=== PATIENT | female | born 1985 | race Caucasian/White ===

== ENCOUNTER 2019-05-14 05:37 | Day surgery (SDC) | payer OTHER ==
[2019-05-13 11:22] VITALS: BMI 29.4
--- NOTE | 2019-05-14 10:21 | HP ---
History & Physical Update - Physical Physical: No Change - Assessment Assessment: No Change - Plan Plan: No Change (H&P reviwed , no changes , for hysteroscopy, resection of submucos myoma)
[2019-05-14] MEDS ORDERED: MIDAZOLAM HCL 2 MG/2 ML SINGLE DOSE VIAL ONE ×2 (12:12→12:40)
[2019-05-14] MEDS ORDERED: PROPOFOL 20 ML ONE ×2 (12:41)
[2019-05-14] MEDS ORDERED: ONDANSETRON 4 MG/2 ML VIAL IVPUSH PRN ×2 (13:18→13:29)
[2019-05-14] MEDS ORDERED: PROMETHAZINE HCL 25 MG/1 ML VIAL IVPB PRN (13:18)
[2019-05-14] MEDS ORDERED: oxyCODONE HCL 5 MG TABLET PO PRN ×2 (13:18→13:29)
--- NOTE | 2019-05-14 13:22 | OP ---
Operative Note - Note: Operative Date: 05/14/19 Pre-Operative Diagnosis: EM polyp, submucos myoma Operation: hysteroscopy, EM polypectomy, D&C Findings: large EM polyp Surgeon: Fred Park Anesthesiologist/COMMERCIAL REAL ESTATE MANAGER: Sean Funes Specimens Removed: EMC, EM polyp Estimated Blood Loss (mls): 25 Blood Volume Replaced (mls): 0 Operative Report Dictated: Yes
[2019-05-14] MEDS ORDERED: IBUPROFEN 800 MG/8 ML IJ IVPB PRN (13:29)
[2019-05-14] MEDS ORDERED: IBUPROFEN 600 MG TABLET (FP) PO PRN (13:29)
[2019-05-14] MEDS ORDERED: ELECTROLYTE-148 SOLN 1,000 ML IV SCH (13:30)
[2019-05-14 15:22] VITALS: PULSE 65; TEMP 98
[2019-05-14 17:29] VITALS: BP 102/55
--- NOTE | 2019-05-14 21:44 | OP ---
DATE OF OPERATION: 05/14/2019 PREOPERATIVE DIAGNOSIS: Endometrial polyp, rule out submucous myoma. POSTOPERATIVE DIAGNOSIS: Endometrial polyps, rule out submucous myoma. PROCEDURE: Hysteroscopy, resection of endometrial polyp, and dilation and curettage. SURGEON: Fred Vanessa MD ANESTHESIA: General. ANESTHESIOLOGIST: Sean Funes MD ESTIMATED BLOOD LOSS: 25 mL. OPERATION: Patient was taken to operating room under adequate general anesthesia in dorsal lithotomy position. Examination under anesthesia revealed external genitalia to be normal, vagina was normal, cervix was clean, no lesion. Uterus was prominent. Adnexa, no masses were palpable. Then, with a weighted speculum in the vagina, anterior lip of the cervix was grasped with a single-tooth tenaculum. Cervix was slight dilated and uterine cavity was sounded to 9 cm. Then Symphion hysteroscope was introduced. Visualization of endocervical canal appeared to be normal. Endometrium was prominent and there was a large endometrial polyp in the mid body of the uterus. Both cornual regions were identified. There was a fundal indentation, possible intramural submucous myoma. No other abnormality was noted. Then, with the Symphion resectoscope, the endometrial polyp was removed entirely, but the submucous myoma, because of being deep-seated in the wall of the uterus, was not attempted to resect. Hysteroscope was withdrawn and then endometrial curetting was done. Patient tolerated procedure well, left the OR in good condition. FRED VANESSA M.D. [id number]
--- NOTE | 2019-05-15 15:03 | PATH ---
Surgical Pathology Report Patient Name: KIMBERLY MOHAMUD [facility]. Rec. #: [id number] /Age/Gender: 1985 (Age: 33) / F Account: [id number] Location: [facility] SURGICAL Taken: 05/14/2019 Received: 05/14/2019 Reported: 05/15/2019 Physicians: Fred Park M.D. Specimen(s) Received ENDOMETRIAL CURETTINGS AND ENDOMETRIAL POLYP Clinical History Endometrial polyp, pelvic pain Final Diagnosis ENDOMETRIAL POLYP AND ENDOMETRIAL CURETTINGS, POLYPECTOMY, DILATION AND CURETTAGE: FRAGMENTS OF ENDOMETRIAL POLYP AND SECRETORY ENDOMETRIUM. Electronically Signed Anne-Marie Zeng M.D. Gross Description Received in formalin labeled "endometrial polyp and curettings," is a 3.7 x 2.5 x 0.3 cm aggregate of cuevas-pink soft tissue fragments. The formalin is filtered and the specimen is entirely submitted in 2 cassettes. /05/14/2019 saudi/05/14/2019
== END 2019-05-14 17:00 | disposition home or self-care (01) ==
LOC: JASU-SURG 05:37
PROVIDERS: ATTEND Obstetrics & Gynecology
PROC: 0UDB7ZX Extraction of Endometrium, Via Natural or Artificial Opening, Diagnostic (ICD-10-PCS; 2019-05-14)
PROC: 0UJD8ZZ Inspection of Uterus and Cervix, Via Natural or Artificial Opening Endoscopic (ICD-10-PCS; 2019-05-14)
PROC: 0UB98ZZ Excision of Uterus, Via Natural or Artificial Opening Endoscopic (ICD-10-PCS; principal; 2019-05-14 10:30)
PROC: 0UB97ZX Excision of Uterus, Via Natural or Artificial Opening, Diagnostic (ICD-10-PCS; 2019-05-14 10:30)
DX: N84.0 Polyp of corpus uteri (principal); D25.0 Submucous leiomyoma of uterus
CPT/HCPCS: 88305-TC; 94760

== ENCOUNTER 2020-07-14 17:18 | Emergency (ER) | payer OTHER ==
--- NOTE | 2020-07-14 17:42 | PDOC ---
Rapid Medical Evaluation Time Seen by Provider: 07/14/20 17:41 Medical Evaluation: Allergies Allergy/AdvReac Type Severity Reaction Status Date / Time No Known Allergies Allergy Verified 05/13/19 11:26 07/14/20 17:41 I have performed a brief in-person evaluation of this patient. The patient presents with a chief complaint of: here w/ palpitation, fatigue, insomnia x 4 days, c/w her anemia per pt. Pt has h/o luis f-en-y gastric bypass in 2019, dx w/ anemia 3 years ago, f/u with heme at [facility] and usually tx w/ iron infusion Q6 months, last time 03/2019 due to covid per pt. Pt was seen by Dr Gray today for her RLS and has labs pending. Of note Hgb 10 on labs today per records Pertinent physical exam findings:stable, well david and alert I have ordered the following:nothing The patient will proceed to the ED for further evaluation. Discharge Disposition - Diagnosis Fatigue Qualifiers: Fatigue type: unspecified Qualified Code(s): R53.83 - Other fatigue - Referrals Referrals: Dalton Malcolm [Primary Care Provider] - - Patient Instructions - Post Discharge Activity
[2020-07-14 17:49] VITALS: BP 124/64; PULSE 99; TEMP 98.1; BMI 21.9
--- NOTE | 2020-07-14 18:32 | PDOC ---
History of Present Illness - General History Source: Patient Exam Limitations: No Limitations - History of Present Illness Initial Comments: 07/14/20 18:29 34-year-old female past medical history of restless leg syndrome Ankit-en-Y bypass anxiety and anemia presenting to the ED for palpitations for the last 5 days mostly in the morning which resolve on their own after 5 minutes. Palpitations are not associated with chest pain or shortness of breath. Patient denies a cardiac history. Patient does not smoke drink or do any drugs and is not on control. Patient was seen and evaluated today by Dr. Gray for her restless leg syndrome. Dr. Gray sent her for blood work including a CBC which showed a hemoglobin of 10.9. Patient attributes her symptoms to her anemia since she has not been able to get her iron transfusions by her hematolo gist due to COVID-19. Pt otherwise denies: fevers, chills, syncope, lightheadedness, dizziness, headaches, neck pain, chest pain, shortness of breath, back pain, abdominal pain, nausea, vomiting, diarrhea, constipation. <Rafael Sorenson - Last Filed: 07/14/20 19:44> <Ling Brown - Last Filed: 07/16/20 08:09> - General Chief Complaint: Palpitations Stated Complaint: ANEMIA Time Seen by Provider: 07/14/20 17:41 Past History - Medical History Anemia: Yes Asthma: No Cancer: No Cardiac Disorders: No CVA: No COPD: No CHF: No Dementia: No Diabetes: No GI Disorders: No Disorders: Yes (renal calculi) HTN: No Hypercholesterolemia: No Liver Disease: No Seizures: No Thyroid Disease: No - Surgical History Abdominal Surgery: Yes (gastic bypass 2008) Appendectomy: No Cardiac Surgery: No Cholecystectomy: Yes (at age 11) GI Surgery: Yes (Rou-e-ny-GI bypass) Lung Surgery: No Neurologic Surgery: No Orthopedic Surgery: No - Reproductive History Is Patient Now?: No - Psycho-Social/Smoking History Smoking Status: No Smoking History: Never smoked Have you smoked in the past 12 months: No Number of Cigarettes Smoked Daily: 0 - Substance Abuse Hx (Audit-C & DAST Scrn) How often the patient has a drink containing alcohol: Never Score: In Men: 4 or > Positive; In Women: 3 or > Positive: 0 Screen Result (Pos requires Nsg. Audit-10AR): Negative In the last yr the pt used illegal drug/Rx for NonMed reason: No Score: Yes response is considered Positive: 0 Screen Result (Positive result requires Nsg. DAST-10): Negative <Delta,Rafael - Last Filed: 07/14/20 19:44> <Ling Brown - Last Filed: 07/16/20 08:09> - Medical History Allergies/Adverse Reactions: Allergies Allergy/AdvReac Type Severity Reaction Status Date / Time No Known Allergies Allergy Verified 07/14/20 17:42 Home Medications: Ambulatory Orders Doxylamine Succinate [Unisom] 100 mg PO HS 05/13/19 Ibuprofen [Motrin -] 600 mg PO QID #28 tablet 05/14/19 Multivitamin [Multiple Vitamins] 1 each PO DAILY 05/14/19 *Physical Exam - Vital Signs Last Vital Signs Temp Pulse Resp BP Pulse Ox 98.1 F 99 H 16 124/64 100 07/14/20 17:20 07/14/20 17:20 07/14/20 17:20 07/14/20 17:20 07/14/20 17:20 - Physical Exam 07/14/20 18:31 Gen: AAOx 3, no acute distress, comfortable, no signs of respiratory distress HENT: atraumatic, normocephalic with no laceration or contusion. Nasal mucosa without erythema. Oropharynx without erythema or exudates. Mucous membranes moist. EYES: PERRL, EOM intact, conjunctiva pink NECK: supple; trachea midline; no JVD, no lymphadenopathy, or thyromegaly CV: RRR no murmurs, gallops, or rubs. CHEST: CTA b/l no wheezing, rales or rhonchi ABD: +BS/ND. no TTP; soft, no rebound, no guarding EXTREMITY: no cyanosis or erythema. 2+ dorsalis pedis, posterior tibial, and radial pulse. No pedal edema; no calf swelling or tenderness SKIN: no rash, warm and dry, no diaphoresis HEME: no purpura or ecchymosis NEURO: normal speech, CN II-XII intact, sensation intact, normal gait, no c erebellar deficits MS: 5/5 strength in all extremities, FROM intact in all extremities. <Rafael Sorenson - Last Filed: 07/14/20 19:44> - Vital Signs Last Vital Signs Temp Pulse Resp BP Pulse Ox 98.1 F 99 H 16 124/64 100 07/14/20 17:20 07/14/20 17:20 07/14/20 17:20 07/14/20 17:20 07/14/20 17:20 <Ling Brown - Last Filed: 07/16/20 08:09> ED Treatment Course - LABORATORY CBC & Chemistry Diagram: 07/14/20 18:31 07/14/20 18:31 - RADIOLOGY Radiology Studies Ordered: Category Date Time Status CHEST PA & LAT [RAD] Stat Radiology 07/14/20 18:06 Ordered <Rafael Sorenson - Last Filed: 07/14/20 19:44> - LABORATORY CBC & Chemistry Diagram: 07/14/20 18:31 07/14/20 18:31 - ADDITIONAL ORDERS Additional order review: 07/14/20 18:31 RBC 3.67 MCV 93.4 MCHC 32.8 RDW 14.5 MPV 6.5 L Neutrophils % 53.5 Lymphocytes % 37.2 Monocytes % 8.6 Eosinophils % 0.3 Basophils % 0.4 <Ling Brown - Last Filed: 07/16/20 08:09> Medical Decision Making - Medical Decision Making 07/14/20 18:31 34-year-old female with palpitations Vital signs stable except a heart rate of 99 most likely secondary to anxiety We will obtain labs EKG chest x-ray Will reassess based on result Chest x-ray within normal limits EKG NSR with no ST elevations or depressions Labs show White blood cell count 5.1 Hemoglobin 11.3 Hematocrit 34.3 Creatinine 0.5 trop negative TSH WNL rest of labs noncontributory Patient to follow-up with PCP hematology and neurology Pt appears well and is safe and stable for discharge with strict return precautions including signs and symptoms requring immediate return to the ED Supportive care instructions explained and given to pt. Reasons to return emergently to ER explained and given. Importance of follow up with PMD and other specialists as indicated stressed to pt. Pt verbalized understanding of instructions. Pt to follow up with PMD in 2 days. 07/14/20 19:44 <Rafael Sorenson - Last Filed: 07/14/20 19:44> - Medical Decision Making The patient was seen and evaluated in conjunction with midlevel provider under my direct supervision, ancillary studies were reviewed. I agree with the plan as outlined withMIKKI Sorenson. HPI, workup/dispo as outlined. VS reviewed, wnl. Vital Signs Temp Pulse Resp BP Pulse Ox 98.1 F 99 H 16 124/64 100 07/14/20 17:20 07/14/20 17:20 07/14/20 17:20 07/14/20 17:20 07/14/20 17:20 anticipate discharge, pcp followup, return precautions 07/16/20 08:08 <Ling Brown - Last Filed: 07/16/20 08:09> Discharge - Discharge Information Problems reviewed: Yes <Rafael Sorenson - Last Filed: 07/14/20 19:44> <Ling Brown - Last Filed: 07/16/20 08:09> - Discharge Information Clinical Impression/Diagnosis: Palpitations Fatigue Qualifiers: Fatigue type: unspecified Qualified Code(s): R53.83 - Other fatigue Condition: Stable Disposition: HOME - Follow up/Referral Referrals: Dalton Malcolm [Primary Care Provider] - - Patient Discharge Instructions Patient Printed Discharge Instructions: DI for Palpitations Additional Instructions: PLEASE FOLLOW UP WITH YOUR PCP HEMATOLOGY AND NEUROLOGY - Post Discharge Activity Work/Back to School Note: Back to Work
[2020-07-14 18:56] LABS: BASO % 0.4 % (0-2.0); EOS % 0.3 % (0-4.5); HEMATOCRIT 34.3 % (32.4-45.2); HEMOGLOBIN 11.3 GM/dL (10.7-15.3); LYMPH % 37.2 % (8-40); MCH 30.7 pg (25.7-33.7); MCHC 32.8 g/dl (32.0-36.0); MEAN CELL VOLUME 93.4 fl (80-96); MEAN PLT VOLUME 6.5 fl (7.5-11.1); MONO % 8.6 % (3.8-10.2); NEUT % 53.5 % (42.8-82.8); PLATELET COUNT 487 K/MM3 (134-434); RBC 3.67 M/mm3 (3.60-5.2); RDW 14.5 % (11.6-15.6); WHITE BLOOD COUNT 5.1 K/mm3 (4.0-10.0)
[2020-07-14 19:01] LABS: INR 0.98 (0.83-1.09); PROTHROMBIN TIME (PATIENT) 12.1 SEC (9.7-13.0)
[2020-07-14 19:25] LABS: CHLORIDE 111 mmol/L (98-107); POTASSIUM 4.1 mmol/L (3.5-5.1); SODIUM 142 mmol/L (136-145)
[2020-07-14 19:27] LABS: CALCIUM 8.7 mg/dL (8.5-10.1)
[2020-07-14 19:28] LABS: ALBUMIN 3.1 g/dl (3.4-5.0); ANION GAP 6 MMOL/L (8-16); BLOOD UREA NITROGEN 8.1 mg/dL (7-18); CO2 25 mmol/L (21-32); GLUCOSE,RANDOM 80 mg/dL (74-106)
[2020-07-14 19:31] LABS: CREATININE 0.5 mg/dL (0.55-1.3); SGOT/AST 15 U/L (15-37); SGPT/ALT 19 U/L (13-61)
[2020-07-14 19:32] LABS: BILIRUBIN,TOTAL 0.2 mg/dL (0.2-1); TOT PROT 6.6 g/dl (6.4-8.2)
[2020-07-14 19:34] LABS: ALK PHOS 88 U/L (45-117)
--- NOTE | 2020-07-15 11:04 | EKG ---
Test Reason : Blood Pressure : / mmHG Vent. Rate : 071 BPM Atrial Rate : 071 BPM P-R Int : 136 ms QRS Dur : 084 ms QT Int : 384 ms P-R-T Axes : 052 063 050 degrees QTc Int : 417 ms NORMAL SINUS RHYTHM WITH SINUS ARRHYTHMIA NORMAL ECG NO PREVIOUS ECGS AVAILABLE Confirmed by MD NILS, QUINN ([id number]) on 07/15/2020 11:04:05 AM Referred By: Confirmed By:QUINN WRAY MD
== END 2020-07-14 19:55 | disposition home or self-care (01) ==
LOC: JER 17:18
DX: R00.2 Palpitations (principal); R53.83 Other fatigue
CPT/HCPCS: 36415; 71046-TC-FY; 80053; 82550; 84439; 84443; 84479; 84484; 85025; 85610; 93005; 93010; 99285-25

== ENCOUNTER 2023-11-04 16:11 | Emergency (ER) | payer OTHER ==
[2023-11-04 16:17] VITALS: BP 124/74; PULSE 76; RESP 20; TEMP 98.6; BMI 22.8
== END 2023-11-04 17:15 | disposition home or self-care (01) ==
LOC: JERFT 16:11
DX: R21 Rash and other nonspecific skin eruption (principal); T78.40XA Allergy, unspecified, initial encounter; R20.2 Paresthesia of skin
CPT/HCPCS: 99283-25

== ENCOUNTER 2024-06-10 04:57 | Day surgery (SDC) | payer OTHER ==
[2024-06-07 12:07] VITALS: BMI 22.8
[2024-06-10] MEDS ORDERED: ONDANSETRON 4 MG/2 ML VIAL IVPUSH PRN (18:24)
[2024-06-10] MEDS ORDERED: oxyCODONE HCL 5 MG TABLET PO PRN (18:24)
[2024-06-10] MEDS ORDERED: PROPOFOL 20 ML ONE (18:28)
[2024-06-10] MEDS ORDERED: MIDAZOLAM HCL 2 MG/2 ML SINGLE DOSE VIAL ONE (18:29)
[2024-06-10] MEDS: ceFAZolin SODIUM 1 GM VIAL IVPB ONE (18:35)
[2024-06-10] MEDS: LACTATED RINGERS SOLUTION 1,000 ML IV SCH (19:04)
[2024-06-10 20:17] VITALS: RESP 20
[2024-06-10 21:05] VITALS: BP 100/51; PULSE 60; TEMP 97.2
== END 2024-06-10 21:30 | disposition home or self-care (01) ==
LOC: JASU-SURG 04:57
PROVIDERS: ATTEND Obstetrics & Gynecology
PROC: 0UB98ZX Excision of Uterus, Via Natural or Artificial Opening Endoscopic, Diagnostic (ICD-10-PCS; principal; 2024-06-10 15:30)
DX: N84.0 Polyp of corpus uteri (principal); N92.1 Excessive and frequent menstruation with irregular cycle
CPT/HCPCS: 81025; 86850; 86900; 86901; 88305-TC; 94760